=== PATIENT | male | born 1985 | race Caucasian/White ===

== ENCOUNTER 2023-11-22 16:26 | Emergency (ER) | payer OTHER, SELFPAY ==
[2023-11-22 16:26] VITALS: BP 136/95; PULSE 91; RESP 17; TEMP 36.8; O2SAT 99
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
[2023-11-22] MEDS: cefTRIAXone 1 GM, LIDOCAINE HCL 1% LOCAL INJ 2.1 ML IM (16:44)
[2023-11-22] MEDS: TETANUS,DIPHTHERIA,AC PERTUSSIS ADULT 0.5 ML (ADACEL) IM (16:45)
[2023-11-22] MEDS: SILVER SULFADIAZINE 1% CR 50 GM JAR (*BKC) 1 APPLIC TOPICAL (16:47)
[2023-11-22 17:10] VITALS: BP 136/95; PULSE 91; RESP 17; TEMP 36.8; O2SAT 99
== END 2023-11-22 17:10 | disposition home or self-care (01) ==
LOC: CHSED 17:02
PROVIDERS: Emergency Provider Emergency Medicine
DX: T22.211A Burn of second degree of right forearm, initial encounter (principal); T23.201A Burn of second degree of right hand, unspecified site, initial encounter; X08.8XXA Exposure to other specified smoke, fire and flames, initial encounter; Z23 Encounter for immunization
CPT/HCPCS: 16020; 90471; 90715; 96372; 99283; A9270; J0696

== ENCOUNTER 2025-01-02 16:37 | Outpatient (CLI) | payer OTHER, SELFPAY ==
--- OUTSIDE RECORDS SUMMARY | 2025-01-02 16:42 | XMS_ITS | Data Portability ---
[facility] [address] [facility] [address] [address] Care Team Providers Care Access Coordinator Name Role Phone WEI VALENZUELA Primary Care Provider Assessment No assessment recorded. Plan of Treatment Reminders Order Date Submit Date Provider Last Modified By Organization Details Last Modified Time Details Appointments ANY 15 2024 03:30P Fitz Valenzuela PA-C Not available Not available Not available Lab borrelia burgdorf mikayla IgG + IgM + total panel, [place], serum 2024 025 [employer] [facility], [address] [place] [address], [address], 01/02/2025 16:56:41 HbA1c (hemoglo bin A1c), blood 2016 017 [facility], [facility] [address], [place], [address], 11/24/2016 06:16:07 CMP, serum or plasma 2016 017 [facility], [facility] [address], [address], [place], [address], 11/17/2016 08:32:26 CBC 2016 017 [facility], Bobby [address]aton [place], [facility] [address], [place], [address], 11/17/2016 08:32:26 lipid panel, serum 2016 017 [facility], [facility] [place], [facility] [address], [place], [address], 11/17/2016 08:32:27 Referral None recorded . Procedures None recorded . Surgeries None recorded . Imaging None recorded . Medication Orders doxycycl ine hyclate 100 mg capsule 2024 025 [facility] #[id number], [address] [place], [address], 01/02/2025 16:56:27 ranitidi ne 150 mg tablet 2016 017 riticocarol [facility], [address] [place] [address], [address], 01/02/2025 16:10:15 Patient TargetsNo targets recorded. Patient Instructions Encounter Date Encounter Id Patient Instructions Last Modified By Organization Details Last Modified Time 11/15/2016 [id number] gastroesophageal reflux disease (GERD): care instructions [email or web address] Not available 11/15/2016 16:12:13 11/22/2016 [id number] learning about t ype 2 diabetes [email or web address] Not available 11/22/2016 16:11:14 type 2 diabetes: care instructions [email or web address] Not available 11/22/2016 16:11:14 01/02/2025 [id number] tick bite: care instructions jnanney Not available 01/02/2025 16:51:50 A healthy lifestyle: care instructions jnanney Not available 01/02/2025 16:51:50 Reason for Referral None Reported. Results Created Date Observation Date Name Description Value Unit Range Abnormal Flag Note LastModifiedBy Organization Detail LastModifiedTime 11/17/19 17 11/17/2016 CBC WBC 8.4 x10e3 /uL 3.4-10 .8 Not Available [facility] ([facility]) [address] [facility], [place], [address], 11/17/2016 08:32:26 11/17/19 17 11/17/2016 CBC RBC 5.78 x10e6 /uL 4.14-5 .80 Not Available [facility] ([facility]) [address] [facility], [place], [address], 11/17/2016 08:32:26 11/17/19 17 11/17/2016 CBC hemoglobin 17.1 g/dL 12.6-1 7.7 Not Available [facility] ([facility]) [address] [facility], [place], [address], 11/17/2016 08:32:26 11/17/19 17 11/17/2016 CBC hematocrit 49.7 % 37.5-5 1.0 Not Available [facility] ([facility]) [address] [facility], [place], [address], 11/17/2016 08:32:26 11/17/19 17 11/17/2016 CBC MCV 86 fL 79-97 Not Available [facility] ([facility]) [address] [facility], [place], [address], 11/17/2016 08:32:26 11/17/19 17 11/17/2016 CBC MCH 29.6 pg 26.6-3 3.0 Not Available [facility] ([facility]) [address] [facility], [place], [address], 11/17/2016 08:32:26 11/17/19 17 11/17/2016 CBC MCHC 34.4 g/dL 31.5-3 5.7 Not Available [facility] ([facility]) [address] [facility], [place], [address], 11/17/2016 08:32:26 11/17/19 17 11/17/2016 CBC RDW 13.3 % 12.3-1 5.4 Not Available [facility] ([facility]) [address] [facility], [place], [address], 11/17/2016 08:32:26 11/17/19 17 11/17/2016 CBC platelets 313 x10e3 /uL 150-37 9 Not Available [facility] ([facility]) [address] [facility], [place], [address], 11/17/2016 08:32:26 11/17/19 17 11/17/2016 CBC neutrophils 58 % Not Avai lable [facility] ([facility]) [address] [place], [address], 11/17/2016 08:32:26 11/17/19 17 11/17/2016 CBC lymphs 26 % Not Available [facility] ([facility]) [address] [place], [address], 11/17/2016 08:32:26 11/17/19 17 11/17/2016 CBC monocytes 9 % Not Availa ble [facility] ([facility]) [address] [place], [address], 11/17/2016 08:32:26 11/17/19 17 11/17/2016 CBC eos 6 % Not Available [facility] ([facility]) [address] [place], [address], 11/17/2016 08:32:26 11/17/19 17 11/17/2016 CBC basos 1 % Not Available [facility] ([facility]) [address] [place], [address], 11/17/2016 08:32:26 11/17/19 17 11/17/2016 CBC immature cells FLATTENING PRESS OPERATOR Not Available [facility] ([facility]) [address] [place], [address], 11/17/2016 08:32:26 11/17/19 17 11/17/2016 CBC neutrophils (absolute) 4.9 x10e3 /uL 1.4-7. 0 Not Available [facility] ([facility]) [address] [place], [address], 11/17/2016 08:32:26 11/17/19 17 11/17/2016 CBC lymphs (absolute) 2.2 x10e3 /uL 0.7-3. 1 Not Available [facility] ([facility]) [address] [place], [address], 11/17/2016 08:32:26 11/17/19 17 11/17/2016 CBC monocytes(ab solute) 0.7 x10e3 /uL 0.1-0. 9 Not Available [facility] ([facility]) [address] [facility], [place], [address], 11/17/2016 08:32:26 11/17/19 17 11/17/2016 CBC eos (absolute) 0.5 x10e3 /uL 0.0-0. 4 above high normal Not Available [facility] ([facility]) [address] [facility] [place], [address], 11/17/2016 08:32:26 11/17/19 17 11/17/2016 CBC baso (absolute) 0.1 x10e3 /uL 0.0-0. 2 Not Available [facility] ([facility]) [address] [facility], [place], [address], 11/17/2016 08:32:26 11/17/19 17 11/17/2016 CBC immature granulocytes 0 % Not Available [facility]) [address] [facility] [place], [address], 11/17/2016 08:32:26 11/17/19 17 11/17/2016 CBC immature grans (abs) 0.0 x10e3 /uL 0.0-0. 1 Not Available [facility] ([facility]) [address] [place], [address], 11/17/2016 08:32:26 11/17/19 17 11/17/2016 CBC NRBC FLATTENING PRESS OPERATOR Not Available [facility] ([facility]) [address] [facility] [place], [address], 11/17/2016 08:32:26 11/17/19 17 11/17/2016 CBC hematology comments: FLATTENING PRESS OPERATOR Not Available [facility] ([facility]) [address] [facility] [place], [address], 11/17/2016 08:32:26 11/17/19 17 11/17/2016 CMP, serum or plasm a glucose, serum 127 mg/dL 65-99 above high normal Not Available [facility] ([facility]) [address] [place], [address], 11/17/2016 08:32:26 11/17/19 17 11/17/2016 CMP, serum or plasm a BUN 14 mg/dL 6-20 Not Available [facility] ([facility]) [address] [place], [address], 11/17/2016 08:32:26 11/17/19 17 11/17/2016 CMP, serum or plasm a creatinine, serum 1.01 mg/dL 0.76-1 .27 Not Available [facility] ([facility]) [address] [place], [address], 11/17/2016 08:32:26 11/17/19 17 11/17/2016 CMP, serum or plasm a eGFR if nonafricn AM 100 mL/mi n/1.7 3 >59 Not Available [facility] ([facility]) [address] [place], [address], 11/17/2016 08:32:26 11/17/19 17 11/17/2016 CMP, serum or plasm a eGFR if africn AM 116 mL/mi n/1.7 3 >59 Not Available [facility] ([facility]) [address] [place], [address], 11/17/2016 08:32:26 11/17/19 17 11/17/2016 CMP, serum or plasm a BUN/creatini ne ratio 14 9-20 Not Available [facility] ([facility]) [address] [place], [address], 11/17/2016 08:32:26 11/17/19 17 11/17/2016 CMP, serum or plasm a sodium, serum 144 mmol/ L 134-14 4 Not Available [facility] ([facility] [address] [facility] [place], [address], 11/17/2016 08:32:26 11/17/1911/17/2016 CMP, serum or plasm a potassium, serum 4.6 mmol/ L 3.5-5. 2 Not Available [facility] ([facility] [address] [facility] [place], [address], 11/17/2016 08:32:26 11/17/1911/17/2016 CMP, serum or plasm a chloride, serum 103 mmol/ L 96-106 Not Available [facility] ([facility]) [address] [facility] [place], [address], 11/17/2016 08:32:11/17/1911/17/2016 CMP, serum or plasm a carbon dioxide, total 22 mmol/ L 18-29 Not Available [facility] ([facility]) [address] [facility] [place], [address], 11/17/2016 08:32:11/17/1911/17/2016 CMP, serum or plasm a calcium, serum 9.5 mg/dL 8.7-10 .2 Not Available [facility] ([facility]) [address] [facility] [place], [address], 11/17/2016 08:32:11/17/1911/17/2016 CMP, serum or plasm a protein, total, serum 7.2 g/dL 6.0-8. 5 Not Available [facility] ([facility]) [address] [facility] [place], [address], 11/17/2016 08:32:11/17/1911/17/2016 CMP, serum or plasm a albumin, serum 4.7 g/dL 3.5-5. 5 Not Available [facility] ([facility]) [address] [facility] [place], [address], 11/17/2016 08:32:26 11/17/19 17 11/17/2016 CMP, serum or plasm a globulin, total 2.5 g/dL 1.5-4. 5 Not Available [facility] ([facility]) [address] [place], [address], 11/17/2016 08:32:26 11/17/19 17 11/17/2016 CMP, serum or plasm a A/G ratio 1.9 1.2-2. 2 Not Available [facility] ([facility]) [address] [place], [address], 11/17/2016 08:32:26 11/17/19 17 11/17/2016 CMP, serum or plasm a bilirubin, total 1.1 mg/dL 0.0-1. 2 Not Available [facility] ([facility]) [address] [place], [address], 11/17/2016 08:32:26 11/17/19 17 11/17/2016 CMP, serum or plasm a alkaline phosphatase, S 81 IU/L 39-117 Not Available [facility] ([facility]) [address] [place], [address], 11/17/2016 08:32:26 11/17/19 17 11/17/2016 CMP, serum or plasm a AST (SGOT) 20 IU/L 0-40 Not Available [facility] ([facility]) [address] [place], [address], 11/17/2016 08:32:26 11/17/19 17 11/17/2016 CMP, serum or plasm a ALT (SGPT) 32 IU/L 0-44 Not Available [facility] ([facility]) [address] [place], [address], 11/17/2016 08:32:26 11/17/19 17 11/17/2016 lipid panel , serum cholesterol, total 189 mg/dL 100-19 9 Not Available [facility] ([facility]) [address] [place], [address], 11/17/2016 08:32:27 11/17/19 17 11/17/2016 lipid panel , serum triglyceride s 165 mg/dL 0-149 above high normal Not Available [facility] ([facility]) [address] [place], [address], 11/17/2016 08:32:27 11/17/19 17 11/17/2016 lipid panel , serum HDL cholesterol 32 mg/dL >39 below low normal Not Available [facility] ([facility]) [address] [place], [address], 11/17/2016 08:32:27 11/17/19 17 11/17/2016 lipid panel , serum VLDL cholesterol yoko 33 mg/dL 5-40 Not Available [facility] ([facility]) [address] [facility] [place], [address], 11/17/2016 08:32:27 11/17/19 17 11/17/2016 lipid panel , serum LDL cholesterol calc 124 mg/dL 0-99 above high normal Not Available [facility] ([facility]) [address] [facility] [place], [address], 11/17/2016 08:32:27 11/17/19 17 11/17/2016 lipid panel , serum comment: FLATTENING PRESS OPERATOR Not Available [facility] ([facility]) [address] [facility] [place], [address], 11/17/2016 08:32:27 11/17/1911/17/2016 cardi ovasc ular asses sment panel , serum interpretati on NOTE SUPPL EMENT REPOR T IS AVAIL ABLE. Not Available [facility] ([facility]) [address] [facility] [place], [address], 11/17/2016 08:32:27 11/17/19 17 11/17/2016 cardi ovasc ular asses sment panel , serum pdf image . Not Available [facility] ([facility]) [address] [facility], [place], [address], 11/17/2016 08:32:27 11/23/19 17 11/24/2016 HbA1c (hemo globi n A1c), blood hemoglobin A1C 5.2 % 4.8-5. 6 PRE-D IABET ES: 5.7 - 6.4 DIABE DONA: >6.4 GLYCE VIRGIL CONTR OL FOR ADULT S WITH DIABE DONA: <7.0 Not Available [facility] ([facility]) [address] [facility], [place], [address], 11/24/2016 06:16:07 Result Notes None recorded. Medical Equipment None Reported. Allergies No known drug allergies Medications Name Sig Start Date Stop Date Status Note LastModified by Organization Details LastModified Time doxycycline hyclate 100 mg capsule Take 1 capsule twice a day by oral route for 21 days. 2024 active Not Available Not Available Not Avai lable cephalexin 500 mg capsule Take 1 capsule 3 times a day by oral route for 10 days. 01/02 completed Not Available Not Available Not Available ranitidine 150 mg tablet Take 1 tablet twice a day by oral route for 30 days. 01/02 completed Not Available Not Available Not Available Vitals Date Recorded Body weight Oxygen saturation Oxygen saturation in Arterial blood by Pulse oximetry Heart rate Systolic blood pressure Diastolic blood pressure Provider Name and Address Organization Details Last Updated DateTime 7 954737. 8 g 98 % 98 % 110 /min 130 mm[Hg] 80 mm[Hg] Jacey Dennis MA [place] - [facility] 7 15:56:05 Date Recorded Body weight Body height Body mass index (BMI) Oxygen saturation Oxygen saturation in Arterial blood by Pulse oximetry Heart rate Systolic blood pressure Diastolic blood pressure Provider Name and Address Organization Details Last Updated DateTime 7 855980. 61 g 177.8 cm 33.6 kg/m2 97 % 97 % 86 /min 132 mm[Hg] 74 mm[Hg] Estefania Brown MA [place] - [facility] 7 15:37:30 Date Recorded Body height Body mass index (BMI) Body weight Oxygen saturation Oxygen saturation in Arterial blood by Pulse oximetry Heart rate Respiratory rate Systolic blood pressure Diastolic blood pressure Provider Name and Address Organization Details Last Updated DateTime 5 177.8 cm 34.9 kg/m2 339400. 95 g 96 % 96 % 74 /min 16 /min 136 mm[Hg] 78 mm[Hg] Meg Garcia MA [facility] 5 16:13:25 Social History Question Answer Notes LastModified by [employer] Details LastModified Time Tobacco Smoking Status Current Every Day Smoker Jacey Dennis MA null, [facility] 11/15/2016 17:04:20 What Is Your Level Of Caffeine Consumption? Moderate Information not available 01/02/2025 What Was The Date Of Your Most Recent Tobacco Screening? 01/02/2025 Information not available 01/02/2025 How Much Tobacco Do You Smoke? 0.5 PPD Information not available 11/15/2016 How Many Years Have You Smoked Tobacco? 10 Information not available 11/15/2016 Sex: Unknown Functional Status Question Answer Note LastModified by [employer] Details LastModified Time Do you use any illicit or recreational drugs? No Information not available 01/02/2025 Do you or have you ever used any other forms of tobacco or nicotine? No Information not available 01/02/2025 What is your level of alcohol consumption? Occasional Information not available 01/02/2025 Mental Status None recorded. Family History Relationship Description Onset Age of this Age Resolved Age Notes LastModified by Organization Details LastModified Time Mother Diabetes mellitus [email or web address] Not available 10/22 17:03:41 Mother Disorder of thyroid gland [email or web address] Not available 10/22 17:04:00 Father Disorder of thyroid gland [email or web address] Not available 10/22 17:03:52 Medical History No medical history recorded. Past Encounters Encounter ID Performer Location Encounter Start Date Encounter Closed Date Diagnosis/Indication Diagnosis SNOMED-CT Code Diagnosis ICD10 Code Diagnosis Note [id number] Gregory Hairston MD [facility] [address] [facility] [place] [address] 11/15/2016 15:27:22 11/15/2016 16:40:41 Gastroesophageal reflux disease 527213049 K21.9 [id number] Gregory Hairston MD [facility] [address] [place] [address] 11/22/2016 15:09:10 11/22/2016 16:12:29 Type 2 diabetes mellitus 13807162 E11.9 [id number] Gregory Hairston MD [facility] [address] [place] [address] 01/02/2025 15:50:53 01/02/2025 16:57:30 Suspected erythema migrans 058355967 R68.89 Tick bite 37162488 S30.8 61A W57.XXXA Obese class I 6072920053 34527 E66.811 Health Concerns Section Related Observation LastModified by Organization Detai ls LastModified Time None Recorded Concern Status LastModified by Organization Details LastModified Time None Recorded Advance Directives Directive None Recorded Payers Insurance Date Sequence Insurance Name Policy Number Policy Magana Covered Member ID Magana Member ID Guarantor Name 01/02/2025 1 *SELF PAY* Gr liset Srinivasan 01/02/2025 1 [employer] [place] - [place] ON OR AFTER 2020 (MEDICAID REPLACEMENT - HMO) Eddie Srinivasan [id number] Sav Srinivasan 01/02/2025 1 [place] [employer] Sav Srinivasan [id number] Sav Srinivasan Notes Date Note Type Note Provider Name and Address Organization Details Recorded Time 11/15/2016 text/html 1 year ago he was reaching over the couch, felt a pop in lft rib cage and passed out. now at times it will be tender. also when he eats he feels a burning stinging pain. whole milk helps. Jacey Dennis MA [facility], [facility] 11/15/2016 17:14:48 11/22/2016 text/html follow up labs see blood sugar Wei Valenzuela [place]-C Attn: [place], [address], [facility] 11/22/2016 15:58:45 01/02/2025 text/html has a tick bite from a week ago..fired up some tweezers and removed the tick..redness began 2 days ago..tick was also very small Wei Valenzuela PA-C Attn: [address] [place], [address], [facility] 01/02/2025 16:57:28
--- OUTSIDE RECORDS SUMMARY | 2025-01-02 16:43 | XMS_ITS | Continuity of Care Document ---
Author Organization [facility] Address [address], [place] [address] Care Team Providers Care Professor Of Criminal Justice Name Role Phone WEI VALENZUELA Primary Care Provider Assessment No assessment recorded. Plan of Treatment Reminders Order Date Submit Date Provider Last Modified By Organization Details Last Modified Time Details Appointments ANY 15 2024 03:30P M Wei Valenzuela PA-C Not available Not available Not available Lab borrelia burgdorfe ri IgG + IgM + total panel, IA, serum 2024 025 [place] [facility], [address] [place] [address], [id number], 01/02/2025 16:56:41 Referral None recorded. Procedures None recorded. Surgeries None recorded. Imaging None recorded. Medication Orders doxycycli ne hyclate 100 mg capsule 2024 025 [id number], [address] [place], [address], 01/02/2025 16:56:27 Patient TargetsNo targets recorded. Patient Instructions Encounter Date Encounter Id Patient Instructions Last Modified By Organization Details Last Modified Time 01/02/2025 [id number] tick bite: care instructions jnanney Not available 01/02/2025 16:51:50 A healthy lifestyle: care instructions jnanney Not available 01/02/2025 16:51:50 Reason for Referral None Reported. Medical Equipment None Reported. Allergies No known [...] Available Not Available Vitals Date Recorded Body height Body mass index (BMI) Body weight Oxygen saturation Oxygen saturation in Arterial blood by Pulse oximetry Heart rate Respiratory rate Systolic blood pressure Diastolic blood pressure Provider Name and Address Organization Details Last Updated DateTime 5 177.8 cm 34.9 kg/m2 310257. 95 g 96 % 96 % 74 /min 16 /min 136 mm[Hg] 78 mm[Hg] Meg Garcia MA [facility] 5 16:13:25 Social History Question Answer Notes LastModified by [email or web address] Details LastModified Time Tobacco Smoking Status Current Every Day Smoker Jacey Dennis MA [facility], [facility] 11/15/2016 17:04:20 What Is Your Level Of Caffeine Consumption? Moderate Information not available 01/02/2025 What Was The Date Of Your Most Recent Tobacco Screening? 01/02/2025 Information not available 01/02/2025 How Much Tobacco Do You Smoke? 0.5 PPD Information not available 11/15/2016 How Many Years Have You Smoked Tobacco? 10 Information not available 11/15/2016 Sex: Unknown Functional Status Question Answer Note LastModified by [email or web address] Details LastModified Time Do you use any [...] SNOMED-CT Code Diagnosis ICD10 Code Diagnosis Note [id number] Gregory Hairston MD [facility] [address] [place] [address] 01/02/2025 15:50:53 01/02/2025 16:57:30 Suspected erythema migrans 841542037 R68.89 Tick bite [id number] S30.8 61A W57.XXXA Obese class I [id number] 21960 E66.811 Health Concerns Section Related Observation LastModified by Organization Detai ls LastModified Time None Recorded Concern Status LastModified by Organization Details LastModified Time None Recorded Payers Encounter Date Sequence Insurance Name Policy Number Policy Magana Covered Member ID Magana Member ID Guarantor Name 01/02/2025 1 [employer] [facility] [facility] [facility] ON OR AFTER 06/22/2020 (MEDICAID REPLACEMENT - HMO) Eddie Srinivasan [id number] Sav Srinivasan Notes Date Note Type Note Provider Name and Address Organization Details Recorded Time 01/02/2025 text/html has a tick bite from a week ago..fired up some tweezers and removed the tick..redness began 2 days ago..tick was also very small Wei Valenzuela PA-C Attn: Accounting,[address] [facility], [place], [address], [facility] 01/02/2025 16:57:28
[2025-01-07 14:08] LABS: Lyme Disease Ab (IgM), Blot NEGATIVE (NEGATIVE); Lyme Disease Ab(IgG), Blot NEGATIVE (NEGATIVE)
== END 2025-01-02 16:38 | disposition home or self-care (01) ==
PROVIDERS: PCP Physician Assistant; Visit Provider Physician Assistant
DX: R68.89 Other general symptoms and signs (principal)
CPT/HCPCS: 36415; 86617